=== PATIENT | male | born 1980 | race Caucasian/White ===

== ENCOUNTER 2017-01-28 15:43 | Observation (INO) | payer BC, MEDICAID ==
[~2017-01-28] VITALS: Ht 182.9 cm; Wt 55.2 kg
[~2017-01-28 15:43] MED LIST: ATIVAN 1MG T1 MG/TAB PO; CELEXA; HALDOL 5MG T5 MG/TAB PO; SEROQUEL200 MG PO; SEROQUEL400 MG PO; UNABLE
[2017-01-28 16:26] LABS: BASO % 0.4 % (0.0-2.0); EOS # 0.1 (0.0-0.7); EOS % 1.4 % (0-4.0); GRAN # 6.7 (1.4-6.5); GRAN % 71.8 % (42.2-75.2); HEMATOCRIT 46.5 % (42.0-52.0); HEMOGLOBIN 16.4 g/dl (13.5-18.0); LYMPH # 1.7 (1.2-3.4); LYMPH % 18.4 % (20.0-51.0); MEAN CELL VOLUME 89 fl (80.0-100.0); MEAN CORPUSCULAR HEMOGLOBIN 31 pg (27.0-31.0); MEAN CORPUSCULAR HGB CONC 35 g/dl (33.0-37.0); MEAN PLATELET VOLUME 8.9 fl (7.4-10.4); MONO # 0.7 (0.1-0.6); MONO % 7.7 % (1.7-9.3); PLATELET COUNT 228 K/mm3 (130-400); RED BLOOD COUNT 5.23 M/mm3 (4.20-5.60); REDCELL DISTRIBUTION WIDTH-CV 11.8 % (11.5-14.5); WHITE BLOOD COUNT 9.4 K/mm3 (4.8-10.8)
[2017-01-28 16:46] LABS: ANION GAP 16 mmol/L (7-16); BLOOD UREA NITROGEN 13 mg/dL (9-20); CALCIUM 9.9 mg/dL (8.4-10.2); CARBON DIOXIDE 24 mmol/L (22-30); CHLORIDE 99 mmol/L (98-107); CREATININE, serum 0.81 mg/dL (0.66-1.25); GLUCOSE 158 mg/dL (74-106); SODIUM 139 mmol/L (137-145)
[2017-01-28 16:51] LABS: ERYTHROCYTE SEDIMENTATION RATE 1 mm/hr (0-15)
[2017-01-28 16:56] LABS: ACETAMINOPHEN < 10 ug/mL (10-30); SALICYLATE < 1.0 mg/dL
[2017-01-28 17:17] LABS: AMPHETAMINE URINE NEGATIVE; BARBITURATES URINE NEGATIVE; BENZODIAZEPINES URINE NEGATIVE; BUPRENORPHINE URINE NEGATIVE; METHADONE URINE NEGATIVE; OPIATES URINE NEGATIVE; OXYCODONE URINE NEGATIVE; PHENCYCLIDINE URINE NEGATIVE; PROPOXYPHENE URINE NEGATIVE; THC CANNABINOIDS URINE NEGATIVE
[2017-01-28 22:18] VITALS: O2SAT 97; O2SAT 98
[2017-01-28 22:19] VITALS: O2SAT 91
[2017-01-28 23:32] VITALS: BP 132/75; PULSE 71; TEMP 97.1
[2017-01-29 08:00] VITALS: BP 109/65; PULSE 68; TEMP 97
[2017-01-29 09:47] VITALS: O2SAT 94
[2017-01-29] MEDS ORDERED: KLONOPIN 1MG1 MG PO (13:50)
[2017-01-29] MEDS ORDERED: SEROQUEL 1100 MG/TAB PO ×2 (13:50→13:52)
[2017-01-29] MEDS ORDERED: ATIVAN2 MG PO (13:50)
[2017-01-29] MEDS ORDERED: GEODON 20M20 MG/VIAL IM (13:51)
== END 2017-01-29 14:26 ==
LOC: COL.ER 15:43 → ICU 20:51
PROVIDERS: Emergency Medicine
DX: F20.9 Schizophrenia, unspecified (principal)
CPT/HCPCS: 90791-AI